=== PATIENT | female | born 1960 | race Caucasian/White ===

== ENCOUNTER 2019-05-11 15:48 | Emergency (ER) | payer MEDICARE, MEDICAID ==
[~2019-05-11] VITALS: Ht 167.6 cm; Wt 88.0 kg
[2019-05-11] MEDS ORDERED: RALO1TAB PO (16:38)
[2019-05-11] MEDS ORDERED: AUGM0.05 TOP (16:38)
[2019-05-11] MEDS ORDERED: MOME50SP NARES (16:38)
[2019-05-11] MEDS ORDERED: SYMB16INH INH (16:38)
[2019-05-11] MEDS ORDERED: NYST10CR TOP (16:38)
[2019-05-11] MEDS ORDERED: LOSA100T8 PO (16:38)
[2019-05-11] MEDS ORDERED: LEVO75TA4 PO (16:38)
[2019-05-11] MEDS ORDERED: NITR0.4S14 SL (16:38)
[2019-05-11] MEDS ORDERED: SING10TA32 PO (16:38)
[2019-05-11] MEDS ORDERED: VITA500045 PO (16:38)
[2019-05-11] MEDS ORDERED: METH-444 PO (16:38)
[2019-05-11] MEDS ORDERED: LEVO50TA5 PO (16:38)
[2019-05-11] MEDS ORDERED: MORP-69 PO (16:38)
[2019-05-11] MEDS ORDERED: PANT40TA3 PO (16:38)
[2019-05-11] MEDS ORDERED: ARIP1TAB4 PO (16:38)
[2019-05-11] MEDS ORDERED: LAMI1TAB7 PO (16:38)
[2019-05-11] MEDS ORDERED: ONDA4TAB6 PO (16:38)
[2019-05-11] MEDS ORDERED: METF500T13 PO (16:38)
[2019-05-11] MEDS ORDERED: AMLO5TAB6 PO (16:38)
[2019-05-11] MEDS ORDERED: AZEL0.05 OP (16:38)
[2019-05-11] MEDS ORDERED: EPIP0.3I2 IM (16:38)
[2019-05-11] MEDS ORDERED: CYMB60CA3 PO (16:38)
[2019-05-11] MEDS ORDERED: AMIT24CA7 PO (16:38)
[2019-05-11] MEDS ORDERED: ALBU83IN NEB (16:38)
[2019-05-11] MEDS ORDERED: FLUC150T PO (16:38)
[2019-05-11] MEDS ORDERED: CARV3.12 PO (16:38)
[2019-05-11] MEDS ORDERED: HUMI40KI2 SC (16:38)
[2019-05-11] MEDS ORDERED: CALC0.009 TOP (16:38)
[2019-05-11] MEDS ORDERED: TRAZ1TAB14 PO (16:38)
[2019-05-11] MEDS ORDERED: XANA0.5T PO (16:38)
[2019-05-11] MEDS ORDERED: PROAAER10 INH (16:38)
[2019-05-11] MEDS ORDERED: CYCL10TA5 PO (16:38)
[2019-05-11] MEDS ORDERED: CARA1TAB6 PO (16:38)
[2019-05-11] MEDS ORDERED: CARV25TA PO (16:39)
[2019-05-11 17:52] LABS: C REACTIVE PROTEIN QUANTITATIV 0.5 MG/DL (0.00-0.30); CALCIUM LEVEL 8.6 MG/DL (8.5-10.1); CREATININE FOR GFR 1.03 MG/DL (0.55-1.30); GLOMERULAR FILTRATION RATE 58.4 (>51); HEMOGLOBIN 13.9 g/dl (12.0-15.5); MEAN CORPUSCULAR HEMOGLOBIN 30.3 pg (27.0-33.0); MEAN CORPUSCULAR HGB CONC 33.1 g/dl (32.0-36.5); MEAN CORPUSCULAR VOLUME 91.7 fl (80.0-96.0); PLATELET COUNT, AUTOMATED 298 10^3/uL (150-450); POTASSIUM SERUM 3.5 MEQ/L (3.5-5.1); RED BLOOD COUNT 4.58 10^6/uL (4.00-5.40); WHITE BLOOD COUNT 9.7 10^3/uL (4.0-10.0)
--- NOTE | 2019-05-11 18:11 | REPVR ---
PROCEDURE INFORMATION: Exam: CT Head Without Contrast Exam date and time: 05/11/2019 5:59 PM Clinical history: 58 years old, female; Pain; Headache; Prior surgery; Surgery date: 6+ months; Additional info: Headache, aneurysm TECHNIQUE: Imaging protocol: Computed tomography of the head without contrast. Radiation optimization: All CT scans at this facility use at least one of these dose optimization techniques: automated exposure control; mA and/or kV adjustment per patient size (includes targeted exams where dose is matched to clinical indication); or iterative reconstruction. COMPARISON: No relevant prior studies available. FINDINGS: Brain: Normal. No hemorrhage. Unremarkable white matter. No mass effect. Ventricles: Normal. No ventriculomegaly. Bones/joints: Unremarkable. No acute fracture. Sinuses: Visualized sinuses are unremarkable. No fluid levels. Mastoid air cells: Visualized mastoid air cells are well aerated. Soft tissues: Unremarkable. 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 IMPRESSION: No acute findings. Electronically signed by: Philip Sanchez On 05/11/2019 18:11:23 PM
[2019-05-11] MEDS ORDERED: ACETAMINOPHEN 500 MG TAB PO ONE (19:45)
[2019-05-11] MEDS ORDERED: METOCLOPRAMIDE INJ 10MG/2ML VIAL (J2765) IV ONE (19:45)
[2019-05-11] MEDS ORDERED: KETOROLAC 30 MG/ML VIAL (J1885) IV ONE (19:45)
[2019-05-11] MEDS ORDERED: REGL5TAB2 PO (20:29)
[2019-05-11 20:31] VITALS: BP 138/74
--- NOTE | 2019-05-12 21:36 | ECGEPIP ---
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
[2019-05-13 14:09] LABS: ANTINUCLEAR ANTIBODIES DIRECT Negative (Negative)
== END 2019-05-11 20:45 | disposition home or self-care (01) ==
LOC: M ED 15:48
DX: I10 Essential (primary) hypertension (principal); Z79.899 Other long term (current) drug therapy; Z79.890 Hormone replacement therapy; Z79.891 Long term (current) use of opiate analgesic; R94.31 Abnormal electrocardiogram [ECG] [EKG]; Z88.5 Allergy status to narcotic agent; Z88.0 Allergy status to penicillin; Z88.1 Allergy status to other antibiotic agents; Z88.8 Allergy status to other drugs, medicaments and biological substances; Z88.2 Allergy status to sulfonamides
CPT/HCPCS: 70450; 80048; 85027; 86038; 86140; 93005; 96374; 96375; 99284; J1885; J2765